=== PATIENT | male | born 1975 | race Caucasian/White ===

== ENCOUNTER 2017-02-14 10:11 | Emergency (ER) | payer OTHER ==
[~2017-02-14 10:11] MED LIST: ALBUTEROL0.09 MG/A1 INH; FOLIC ACID 1 MG PO; MULTIVITAMIN1 TAB PO; NORVASC 5MG TAB5 MG PO; PRILOSEC 20MG C20 MG PO; RISPERIDONE 1 MG1 MG PO; Theragran Vitamins PO; VITAMIN B COMPL1 CAP PO; VITAMIN B1100 MG PO
--- NOTE | 2017-02-14 10:34 | ED GI/GU/ABDOMINAL COMPLAINT ---
History of Present Illness General Chief Complaint: Abdominal Pain/Flank Pain Stated Complaint: LEFT SIDE FLANK PAIN Source: patient, family Exam Limitations: poor historian (HISTORY OF BRAIN INJURY) Vital Signs & Intake/Output Vital Signs & Intake/Output Vital Signs Date Time Temp Pulse Resp B/P B/P Pulse O2 O2 Flow FiO2 Mean Ox Delivery Rate 02/14 1317 68 140/68 02/14 1018 97.5 55 15 149/87 98 Room Air Room Air Allergies Coded Allergies: No Known Allergies (02/14/17) Reconcile Medications Aripiprazole 2 MG TABLET 1 TAB PO DAILY MENTAL HEALTH (Reported) Ibuprofen 800 MG TABLET 1 TAB PO TID PAIN Levetiracetam (Keppra) 250 MG TABLET 0.5 TAB PO BID SEIZURES (Reported) Ondansetron (Zofran Odt) 4 MG TAB.RAPDIS 1 TAB SL TID PRN NAUSEA Oxycodone HCl/Acetaminophen (Percocet 5-325 MG Tablet) 5 MG-325 MG TABLET 1 TAB PO BID BREAKTHROUGH PAIN Simvastatin (Simvastatin*) 40 MG TABLET 1 TAB PO QPM CHOLESTEROL (Reported) Tamsulosin HCl (Flomax) 0.4 MG CAP.ER.24H 1 CAP PO DAILY KIDNEY STONE Triage Note: PT TO ED FOR C/C OF L FLANK PAIN SINCE YESTERDAY. DENIES NAUSEA OR VOMITING. PER , PT MORE YELLOW THAN USUAL. ALSO GENERALIZED ABD PAIN FOR A FEW WEEKS AND FOUL SMELLING BREATH. LNBM TODAY. +DARK URINE. Triage Nurses Notes Reviewed? yes Onset: Abrupt Duration: day(s): (2) Timing: multiple episodes today Quality/Severity: severe Location: left flank Radiation: no radiation Associated Symptoms: abdominal pain (NAUSEA, DARK URINE) HPI: This is a 41-year-old male with history of previous brain injury presents to the ER with his for chief complaint of feeling nauseous since yesterday. He did not eat anything today. He complained of some left flank pain yesterday. Patient has a history of short-term memory loss. She states he did not have any fever or chills but told her that he's been having some abdominal pain. No history of similar symptoms. also states in the past year he has had feculent smelling breath. He states that the primary care doctor and said everything was fine. No history of abdominal surgeries. According to the the urine looks dark this morning. No known history of renal stones. He states that he just feels like he wants to throw up. Patient denies any current alcohol or tobacco use. Past History Travel History Traveled to [place] past 21 day No Medical History Any Pertinent Medical History? see below for history Neurological: tbi Cardiovascular: hyperlipidemia, HTN (BORDERLINE) (not on home meds) Psychiatric: alcohol use disorder SA by hanging STOPPED DRINKING IN 2014 History of MRSA: No History of VRE: No History of CDIFF: No Surgical History Surgical History: N Psychosocial History Who do you live with Spouse What is your primary language Omani Tobacco Use: Never used ETOH Use: denies use Illicit Drug Use: denies illicit drug use Family History Family History, If Any: No Known Family History. Hx Contributory? No Review of Systems Review of Systems Constitutional: Denies: chills, fever. EENTM: Reports: no symptoms. Respiratory: Reports: no symptoms. Cardiovascular: Reports: no symptoms. GI: Reports: abdominal pain, nausea. Denies: constipation, diarrhea, vomiting. Genitourinary: Reports: no symptoms. Musculoskeletal: Denies: back pain. Skin: Reports: no symptoms. Neurological/Psychological: Reports: no symptoms. Hematologic/Endocrine: Denies: bruising, bleeding, polyuria, polydipsia. Immunologic/Allergic: Denies: splenectomy. All Other Systems: Reviewed and Negative Physical Exam Physical Exam General Appearance: well developed/nourished, alert, awake Head: atraumatic, normal appearance Eyes: Bilateral: normal appearance, PERRL, EOMI. Ears, Nose, Throat, Mouth: hearing grossly normal, moist mucous membrane Neck: normal inspection, supple, full range of motion Cardiovascular: regular rate/rhythm Peripheral Pulses: 2+ radial (R), 2+ radial (L) Gastrointestinal: normal bowel sounds, soft, tenderness (MILD LEFT FLANK) Back: normal inspection Extremities: normal range of motion Neurologic/Psych: no motor/sensory deficits, awake, alert, oriented x 3 Skin: intact, normal color, warm/dry Core Measures ACS in differential dx? No Severe Sepsis Present: No Septic Shock Present: No Progress Differential Diagnosis: perforated viscous, SBO, ureterolithiasis, UTI/pyelo Plan of Care: Orders Procedure Date/time Status Add-on Test (ER Only) 02/14 1243 Active HEPATITIS PANEL 02/14 1107 Complete URINALYSIS 02/14 1044 Complete LIPASE 02/14 1044 Complete COMPREHENSIVE METABOLIC PANEL 02/14 1044 Complete CBC WITHOUT DIFFERENTIAL 02/14 1044 Complete Laboratory Tests 02/14/17 1109: Urinalysis MANY H, Urine Color YEL, Urine Clarity TURBD H, Urine pH 5.5, Ur Specific [place] >= 1.030, Urine Protein 100 H, Urine Ketones NEG, Urine Nitrite NEG, Urine Bilirubin NEG, Urine Urobilinogen 1.0, Ur Leukocyte Esterase NEG, Ur Microscopic SEDIMENT EXAMINED, Urine RBC 25-50 H, Urine Bacteria FEW H , Urine Hemoglobin LARGE H, Urine Glucose NEG 02/14/17 1107: Anion Gap 13, Estimated GFR > 60, BUN/Creatinine Ratio 15.0, Glucose 101 H, Calcium 9.0, Total Bilirubin 2.4 H, AST 21, ALT 50, Alkaline Phosphatase 62, Total Protein 6.8, Albumin 4.2, Globulin 2.6, Albumin/Globulin Ratio 1.6, Lipase 44, CBC w Diff NO MAN DIFF REQ, RBC 4.58 L, MCV 87.8, MCH 30.7, RDW 12.5, MPV 8.2, Gran % 81.1 H, Lymphocytes % 14.9 L, Monocytes % 3.4, Eosinophils % 0.1, Basophils % 0.5, Absolute Granulocytes 8.5 H, Absolute Lymphocytes 1.6, Absolute Monocytes 0.4, Absolute Eosinophils 0, Absolute Basophils 0, PUBS MCHC 35.0, Hepatitis A IgM Ab NONREACTIVE, Hep Bs Antigen NONREACTIVE, Hep B Core IgM Ab Conf NONREACTIVE, Hepatitis C Antibody NONREACTIVE 02/14/2017 12:23:44 PM Pain and nausea have resolved after medications. CT scan results pending. PATIENT REMAINS PAIN FREE. D/W PATIENT AND REGARDING CT RESULTS. WILL FOLLOW UP WITH DR SMITH OUTPATIENT. RX SENT TO [facility]. (RAQUEL MURILLO,FINESSE) Diagnostic Imaging: Viewed by Me: CT Scan. Discussed w/RAD: CT Scan. Radiology Impression: PATIENT: TOM WATTERS PRESENT AGE: 41 PATIENT ACCOUNT NO: [id number] : 73 LOCATION: [facility] ORDERING PHYSICIAN: FINESSE GARCÍA MD SERVICE DATE: 02/14/17 EXAM TYPE: CAT - CT ABD & PELVIS W/O IV CONTRAS EXAMINATION: CT ABDOMEN AND PELVIS WITHOUT CONTRAST CLINICAL INFORMATION: Left flank pain COMPARISON: None TECHNIQUE: Multidetector volumetric imaging was performed from the superior aspect of the liver through the pubic symphysis. Sagittal and coronal reformatted images were obtained on the technologist's workstation. DLP: 251 mGy-cm FINDINGS: LUNG BASES : The visualized lung bases are unremarkable. LIVER, GALLBLADDER, AND BILIARY TREE: The liver is normal in size, shape, and attenuation. No focal hepatic lesion or biliary ductal dilatation is present. The gallbladder is unremarkable with no evidence of radiopaque gallstones, gallbladder wall thickening, or obvious pericholecystic inflammatory changes. PANCREAS: Unremarkable. SPLEEN: Unremarkable. ADRENAL GLANDS: Unremarkable. KIDNEYS AND URETERS: There is a 5 x 3 mm calculus at the left ureterovesical junction measuring 1300 Hounsfield units with mild left hydroureteronephrosis. No additional renal or ureteral calculi. BLADDER: Unremarkable. GASTROINTESTINAL TRACT: The small and large bowel are unremarkable. The appendix is unremarkable. ABDOMINAL WALL: No significant hernia is appreciated. LYMPH NODES: Normal. VASCULAR: Unremarkable. PELVIC VISCERA: Unremarkable. OSSEOUS STRUCTURES: Unremarkable. IMPRESSION: There is a 5 x 3 mm calculus at the left ureterovesical junction with mild left hydroureteronephrosis. DICTATED BY: SERA MORSE MD DATE/TIME DICTATED:1216 LUMBER PLANER:SARAH DATE/TIME TRANSCRIBED:02/14/171216 CONFIDENTIAL, DO NOT COPY WITHOUT APPROPRIATE AUTHORIZATION. <Electronically signed in Other Vendor System> SIGNED BY: SERA MORSE MD 02/14/17 1224 Initial ED EKG: none Departure Departure Time of Disposition: 1255 Disposition: HOME OR SELF CARE Condition: Stable Clinical Impression Primary Impression: Left flank pain Secondary Impressions: Nephrolithiasis Referrals: YURI BORJAS MD (PCP/Family) URBANO SMITH MD Additional Instructions: Follow up with Dr. Smith in the office Take flomax, zofran, motrin and percocet as directed Drink plenty of fluids Use the urinary strainer as directed Return to the ER if worse. Departure Forms: Customer Survey General Discharge Information Prescriptions: Current Visit Scripts Tamsulosin HCl (Flomax) 1 CAP PO DAILY #14 CAP Ibuprofen 1 TAB PO TID #30 TAB Ondansetron (Zofran Odt) 1 TAB SL TID PRN NAUSEA #20 TAB Oxycodone HCl/Acetaminophen (Percocet 5-325 MG Tablet) 1 TAB PO BID #12 TAB
[2017-02-14] MEDS ORDERED: ARIPIPRAZOLE2 MG PO (11:10)
[2017-02-14] MEDS ORDERED: SIMVASTATIN40 M1 PO (11:10)
[2017-02-14] MEDS ORDERED: KEPPRA250 M1 PO (11:10)
[2017-02-14 11:15] LABS: ABSOLUTE BASOPHIL COUNT 0 /CUMM (0.0-0.2); ABSOLUTE EOSINOPHIL COUNT 0 /CUMM (0.0-0.7); ABSOLUTE GRANULOCYTE CT 8.5 /CUMM (1.4-6.5); ABSOLUTE LYMPH COUNT 1.6 /CUMM (1.2-3.4); ABSOLUTE MONOCYTE COUNT 0.4 /CUMM (0.10-0.60); BASOPHIL % 0.5 % (0.0-2.0); EOSINOPHIL % 0.1 % (0-5); HEMATOCRIT 40.3 % (42-52); MEAN CORPUSCULAR HGB 30.7 PG (27.0-31.0); MEAN CORPUSCULAR VOLUME 87.8 FL (80.0-94.0); MEAN PLATELET VOLUME 8.2 FL (7.4-10.4); PLATELET COUNT 193 /CUMM (130-400); RBC DISTRIBUTION WIDTH 12.5 % (11.5-14.5); RED BLOOD CELL CT 4.58 /CUMM (4.70-6.10); WHITE BLOOD CELL COUNT 10.5 /CUMM (4.8-10.8)
[2017-02-14 11:19] LABS: GRANULOCYTE % 81.1 % (42.2-75.2)
--- NOTE | 2017-02-14 12:24 | CT SCAN REPORT ---
EXAMINATION: CT ABDOMEN AND PELVIS WITHOUT CONTRAST CLINICAL INFORMATION: Left flank pain COMPARISON: None TECHNIQUE: Multidetector volumetric imaging was performed from the superior aspect of the liver through the pubic symphysis. Sagittal and coronal reformatted images were obtained on the technologist's workstation. DLP: 251 mGy-cm FINDINGS: LUNG BASES: The visualized lung bases are unremarkable. LIVER, GALLBLADDER, AND BILIARY TREE: The liver is normal in size, shape, and attenuation. No focal hepatic lesion or biliary ductal dilatation is present. The gallbladder is unremarkable with no evidence of radiopaque gallstones, gallbladder wall thickening, or obvious pericholecystic inflammatory changes. PANCREAS: Unremarkable. SPLEEN: Unremarkable. ADRENAL GLANDS: Unremarkable. KIDNEYS AND URETERS: There is a 5 x 3 mm calculus at the left ureterovesical junction measuring 1300 Hounsfield units with mild left hydroureteronephrosis. No additional renal or ureteral calculi. BLADDER: Unremarkable. GASTROINTESTINAL TRACT: The small and large bowel are unremarkable. The appendix is unremarkable. ABDOMINAL WALL: No significant hernia is appreciated. LYMPH NODES: Normal. VASCULAR: Unremarkable. PELVIC VISCERA: Unremarkable. OSSEOUS STRUCTURES: Unremarkable. IMPRESSION: There is a 5 x 3 mm calculus at the left ureterovesical junction with mild left hydroureteronephrosis.
[2017-02-14] MEDS ORDERED: IBUPROFEN800 M1 PO (12:57)
[2017-02-14] MEDS ORDERED: ZOFRAN ODT4 M1 SL (12:57)
[2017-02-14] MEDS ORDERED: FLOMAX0.4 M1 PO (12:57)
[2017-02-14] MEDS ORDERED: PERCOCET 5-3251 EACH PO (13:00)
[2017-02-14 13:17] VITALS: BP 140/68
== END 2017-02-14 13:18 ==
LOC: ERH 10:11
PROVIDERS: Emergency Medicine
DX: N20.0 Calculus of kidney (principal)
CPT/HCPCS: 74176; 81001; 96361; 96374; 96375; J1885; J2405